=== PATIENT | female | born 1995 | race Caucasian/White ===

== ENCOUNTER 2022-12-24 12:56 | Emergency (ER) | payer SELFPAY ==
[2022-12-24 13:40] VITALS: BP 114/87; PULSE 86
== END 2022-12-24 13:37 | disposition home or self-care (01) ==
LOC: JD.ED 12:56
DX: F41.9 Anxiety disorder, unspecified (principal); G47.00 Insomnia, unspecified
CPT/HCPCS: 99283

== ENCOUNTER 2023-06-02 17:08 | Emergency (ER) | payer SELFPAY ==
[2023-06-02 17:18] VITALS: BP 128/83; PULSE 132
[2023-06-02] MEDS ORDERED: Sodium Chloride 0.9% 10 ML Syringe FLUSH PRN (17:35)
[2023-06-02] MEDS ORDERED: OLANZapine 10 MG Vial ONE (17:46)
[2023-06-02] MEDS ORDERED: OLANZapine 10 MG Vial IM ONE (17:51)
[2023-06-02 18:03] LABS: BASOPHILS PERCENT AUTO 0.5 % (0.0-1.0); EOSINOPHILS ABSOLUTE AUTO 0.2 K/mm3 (0.0-0.4); EOSINOPHILS PERCENT AUTO 1.8 % (0.0-6.0); HEMATOCRIT 40.1 % (37.0-47.0); HEMOGLOBIN 14.1 gm/dl (12.0-16.0); IMMATURE GRAN ABSOLUTE AUTO 0.03 K/mm3 (0.00-0.05); IMMATURE GRAN PERCENT AUTO 0.3 % (0.0-0.4); LYMPHOCYTES ABSOLUTE AUTO 1.6 K/mm3 (1.0-4.8); LYMPHOCYTES PERCENT AUTO 18.3 % (24.0-44.0); MEAN CORPUSCULAR HEMOGLOBIN 31.3 pg (28.0-32.0); MEAN CORPUSCULAR HGB CONC 35.2 g/dl (32.0-36.0); MEAN CORPUSCULAR VOLUME 88.9 fl (83.0-99.0); MEAN PLATELET VOLUME 9.2 fl (9.4-12.3); MONOCYTES ABSOLUTE AUTO 0.9 K/mm3 (0.0-0.8); MONOCYTES PERCENT AUTO 9.7 % (0.0-8.0); NEUTROPHILS ABSOLUTE AUTO 6.1 K/mm3 (1.8-7.7); NEUTROPHILS PERCENT AUTO 69.4 % (41.0-71.0); PLATELET COUNT,PLT 246 K/mm3 (150-400); RED BLOOD CELL COUNT 4.51 M/mm3 (4.10-5.30); WHITE BLOOD CELL COUNT,WBC 8.85 K/mm3 (3.9-11.3)
[2023-06-02 18:33] LABS: A/G RATIO 1.3 (1-2); ALANINE AMINOTRANSFERASE,ALT 69 U/L (14-59); ALKALINE PHOSPHATASE 62 U/L (46-116); ANION GAP 12.7 (5-15); ASPARTATE AMNIOTRANSFERASE,AST 59 U/L (15-37); BILIRUBIN TOTAL 0.4 mg/dL (0.2-1.0); BLOOD UREA NITROGEN,BUN 15 mg/dL (7-18); BUN/CREATININE RATIO 18.8 (14-18); CALCIUM 8.5 mg/dL (8.5-10.1); CARBON DIOXIDE,CO2 28 mEq/L (21-32); CHLORIDE,CL 105 mEq/L (98-107); CREATININE 0.8 mg/dL (0.55-1.02); ESTIMATED GFR 103 mL/min (>60); ETHANOL BLOOD MEDICAL 0.04 gm% (0.00); GLUCOSE RANDOM 105 mg/dL (70-99); POTASSIUM,K 3.7 mEq/L (3.5-5.1); PROTEIN TOTAL,TP 7.1 g/dl (6.4-8.2); SODIUM,NA 142 mEq/L (136-145)
[2023-06-02 18:39] LABS: ACETAMINOPHEN 0 ug/mL (10-30); HCG QUANTITATIVE < 1.0 mIU/mL
[2023-06-02] MEDS ORDERED: Lactated Ringers 1,000 ML IV SCH (19:45)
== END 2023-06-02 20:18 | disposition home or self-care (01) ==
LOC: JD.ED 17:08
DX: R45.1 Restlessness and agitation (principal); R94.6 Abnormal results of thyroid function studies
CPT/HCPCS: 36415; 80053; 80143; 80179; 80307; 84443; 84702; 85025; 96372; 99285; J2405; 99284

== ENCOUNTER 2024-02-07 08:44 | Emergency (ER) | payer MEDICAID ==
[2024-02-07 09:18] VITALS: PULSE 98
[2024-02-07 09:42] LABS: BASOPHILS PERCENT AUTO 0.7 % (0.0-1.0); EOSINOPHILS ABSOLUTE AUTO 0.1 K/mm3 (0.0-0.4); EOSINOPHILS PERCENT AUTO 2.2 % (0.0-6.0); HEMATOCRIT 40.3 % (37.0-47.0); HEMOGLOBIN 14.4 gm/dl (12.0-16.0); IMMATURE GRAN ABSOLUTE AUTO 0.01 K/mm3 (0.00-0.05); IMMATURE GRAN PERCENT AUTO 0.2 % (0.0-0.4); LYMPHOCYTES ABSOLUTE AUTO 1.5 K/mm3 (1.0-4.8); LYMPHOCYTES PERCENT AUTO 36.9 % (24.0-44.0); MEAN CORPUSCULAR HGB CONC 35.7 g/dl (32.0-36.0); MEAN PLATELET VOLUME 8.7 fl (9.4-12.3); MONOCYTES ABSOLUTE AUTO 0.3 K/mm3 (0.0-0.8); NEUTROPHILS ABSOLUTE AUTO 2.1 K/mm3 (1.8-7.7); PLATELET COUNT,PLT 192 K/mm3 (150-400); RED BLOOD CELL COUNT 4.96 M/mm3 (4.10-5.30); WHITE BLOOD CELL COUNT,WBC 4.01 K/mm3 (3.9-11.3)
[2024-02-07 09:43] LABS: MEAN CORPUSCULAR VOLUME 81.3 fl (83.0-99.0)
[2024-02-07 10:19] LABS: MAGNESIUM 1.9 mg/dL (1.8-2.4)
[2024-02-07 10:21] LABS: HCG QUANTITATIVE < 1.0 mIU/mL
[2024-02-07 10:23] LABS: A/G RATIO 1.4 (1-2); ALBUMIN 4.2 g/dl (3.4-5.0); ANION GAP 9.9 (5-15); BILIRUBIN TOTAL 0.6 mg/dL (0.2-1.0); BUN/CREATININE RATIO 16.7 (14-18); CALCIUM 8.7 mg/dL (8.5-10.1); CREATININE 0.9 mg/dL (0.55-1.02); EST CRCL DRUG DOSING (CG) 90.5 mL/min; POTASSIUM,K 3.9 mEq/L (3.5-5.1); PROTEIN TOTAL,TP 7.2 g/dl (6.4-8.2); TSH 11.547 uIU/mL (0.358-3.74)
[2024-02-07 10:25] LABS: APPEARANCE,URINE CLEAR (Clear); BILIRUBIN,URINE NEGATIVE (Negative); COLOR,URINE YELLOW (Yellow); GLUCOSE,URINE NEGATIVE (Negative); KETONES,URINE NEGATIVE (Negative); LEUKOCYTE ESTERASE,URINE NEGATIVE (Negative); NITRITE,URINE NEGATIVE (Negative); OCCULT BLOOD,URINE NEGATIVE (Negative); PH,URINE 6.5 (5.0-8.0); PROTEIN,URINE NEGATIVE (Negative); UROBILINOGEN,URINE 0.2 (0.2-1.0)
[2024-02-07 10:35] LABS: BARBITURATE SCREEN,URINE NEGATIVE (CUTOFF=200); BENZODIAZEPINES SCREEN,URINE NEGATIVE (CUTOFF=150); BUPRENORPHINE SCREEN,URINE PRESUMPTIVE POSITIVE (CUTOFF=10); METHADONE SCREEN, URINE NEGATIVE (CUTOFF=200); METHAMPHETAMINES SCREEN, URINE NEGATIVE (CUTOFF=500); OXYCODONE SCREEN,URINE NEGATIVE (CUT0FF=100); THC SCREEN,URINE 20 NG/ML NEGATIVE (CUTOFF=50)
[2024-02-07 10:36] LABS: AMPHETAMINES SCREEN, URINE NEGATIVE (CUTOFF=500)
[2024-02-07] MEDS: Thiamine 200 MG/2 ML MDV IVPUSH SCH (10:41)
[2024-02-07] MEDS: LORazepam 2 MG/ML SDV IV PRN (10:52)
[2024-02-07] MEDS: OLANZapine 5 MG Tab PO ONE (16:10)
[2024-02-07] MEDS: OLANZapine 10 MG Vial IM ONE (16:29)
[2024-02-07 17:44] VITALS: BP 132/95
== END 2024-02-07 17:35 | disposition home or self-care (01) ==
LOC: JD.ED 08:44
DX: F10.130 Alcohol abuse with withdrawal, uncomplicated (principal); R44.1 Visual hallucinations; R79.89 Other specified abnormal findings of blood chemistry; Z79.899 Other long term (current) drug therapy; Y90.9 Presence of alcohol in blood, level not specified
CPT/HCPCS: 36415; 80053; 80143; 80179; 80306; 80307; 81003; 83735; 84439; 84443; 84702; 85025; 93005; 96374; 96375; 99285; J2060; J3360; J3411

== ENCOUNTER 2025-01-05 17:14 | Emergency (ER) | payer MEDICAID ==
[2025-01-05 17:30] LABS: BASOPHILS ABSOLUTE AUTO 0.0 K/mm3 (0.0-0.2); BASOPHILS PERCENT AUTO 0.4 % (0.0-1.0); EOSINOPHILS ABSOLUTE AUTO 0.0 K/mm3 (0.0-0.4); EOSINOPHILS PERCENT AUTO 0.4 % (0.0-6.0); IMMATURE GRAN ABSOLUTE AUTO 0.02 K/mm3 (0.00-0.05); IMMATURE GRAN PERCENT AUTO 0.3 % (0.0-0.4); LYMPHOCYTES ABSOLUTE AUTO 1.6 K/mm3 (1.0-4.8); LYMPHOCYTES PERCENT AUTO 21.8 % (24.0-44.0); MEAN PLATELET VOLUME 9.5 fl (9.4-12.3); MONOCYTES ABSOLUTE AUTO 0.4 K/mm3 (0.0-0.8); MONOCYTES PERCENT AUTO 6.0 % (0.0-8.0); NEUTROPHILS ABSOLUTE AUTO 5.1 K/mm3 (1.8-7.7); NEUTROPHILS PERCENT AUTO 71.1 % (41.0-71.0); NRBC ABSOLUTE 0.00 (0.00-0.02); NRBC PERCENT 0.0 % (0.0-0.2); PLATELET COUNT,PLT 200 K/mm3 (150-400); RED BLOOD CELL COUNT 4.42 M/mm3 (4.10-5.30); WHITE BLOOD CELL COUNT,WBC 7.20 K/mm3 (3.9-11.3)
[2025-01-05] MEDS: Thiamine 200 MG/2 ML MDV IVPUSH ONE (17:41)
[2025-01-05] MEDS: Ondansetron 4 MG/2 ML SDV IVPUSH ONE ×2 (17:41)
[2025-01-05 17:56] LABS: APPEARANCE,URINE CLEAR (Clear); GLUCOSE,URINE NEGATIVE (Negative); OCCULT BLOOD,URINE NEGATIVE (Negative)
[2025-01-05 18:03] LABS: INR 1.01
[2025-01-05 18:04] LABS: A/G RATIO 1.2 (1-2); ALANINE AMINOTRANSFERASE,ALT 28 U/L (14-59); ASPARTATE AMNIOTRANSFERASE,AST 17 U/L (15-37); BILIRUBIN TOTAL 0.2 mg/dL (0.2-1.0); BLOOD UREA NITROGEN,BUN 10 mg/dL (7-18); CARBON DIOXIDE,CO2 24 mEq/L (21-32); CHLORIDE,CL 109 mEq/L (98-107); CREATINE KINASE,CK 115 U/L (26-192); CREATININE 0.6 mg/dL (0.55-1.02); ESTIMATED GFR 125 mL/min (>60); ETHANOL BLOOD MEDICAL 0.32 gm% (0.00); GLUCOSE RANDOM 121 mg/dL (70-99); POTASSIUM,K 3.3 mEq/L (3.5-5.1); PROTEIN TOTAL,TP 6.2 g/dl (6.4-8.2); SODIUM,NA 143 mEq/L (136-145)
[2025-01-05 18:09] LABS: TROPONIN I HIGH SENSITIVITY < 4 pg/mL (<=51)
[2025-01-05 18:10] LABS: BUPRENORPHINE SCREEN,URINE NEGATIVE (CUTOFF=10); METHADONE SCREEN, URINE NEGATIVE (CUTOFF=200); METHAMPHETAMINES SCREEN, URINE PRESUMPTIVE POSITIVE (CUTOFF=500); OXYCODONE SCREEN,URINE NEGATIVE (CUT0FF=100); THC SCREEN,URINE 20 NG/ML NEGATIVE (CUTOFF=50)
[2025-01-05 18:14] LABS: AMPHETAMINES SCREEN, URINE PRESUMPTIVE POSITIVE (CUTOFF=500)
[2025-01-06 00:31] VITALS: BP 93/61; PULSE 82
[2025-01-06] MEDS: Folic Acid 50 MG/10 ML MDV IV STA (00:36)
== END 2025-01-06 00:36 | disposition home or self-care (01) ==
LOC: JD.ED 17:14
DX: F10.129 Alcohol abuse with intoxication, unspecified (principal); F15.90 Other stimulant use, unspecified, uncomplicated; Y90.9 Presence of alcohol in blood, level not specified; Z79.899 Other long term (current) drug therapy
CPT/HCPCS: 36415; 80053; 80143; 80179; 80306; 80307; 81003; 81025; 82550; 83690; 83735; 84484; 85025; 85610; 93005; 96365; 96366; 96367; 96375; 99285; C1758; J2405; J3411; J3475; J3480; J7030; 93010; 99284